=== PATIENT | male | born 1995 | race African-American/Black ===

== ENCOUNTER 2018-04-22 11:04 | Emergency (ER) | payer OTHER ==
[~2018-04-22] VITALS: Ht 190.5 cm; Wt 72.1 kg
[2018-04-22] MEDS ORDERED: KETOROLAC TROMETHAMINE 30 MG/ML VIAL IV STA (11:53)
--- NOTE | 2018-04-22 12:04 | Diagnostic Imaging Report ---
Exam: Chest X-ray, 2 views History: Chest pain. Cough Comparison: None Findings: Midline trachea. The heart size is normal. There is no consolidated pneumonia, pleural effusion or pneumothorax. The bones are unremarkable. Impression: No acute cardiopulmonary abnormality. Signed by: Dr. Wilfred Dixon M.D. on 04/22/2018 12:00 PM
[2018-04-22] MEDS ORDERED: KETOROLAC TROMETHAMINE 60 MG/2 ML VIAL IM ONE (12:30)
[2018-04-22] MEDS ORDERED: FAMOTIDINE 20 MG/2 ML VIAL IV STA (13:04)
[2018-04-22] MEDS ORDERED: ONDANSETRON HCL INJ 2 MG/ML VIAL IV STA (13:04)
[2018-04-22] MEDS ORDERED: MORPHINE SULFATE 2 MG/ML SYR IV STA (13:04)
[2018-04-22] MEDS ORDERED: PANTOPRAZOLE 40 MG 10ML VIAL IV STA (13:04)
[2018-04-22] MEDS ORDERED: SODIUM CHLORIDE 0.9% 1000ML 1,000 ML IV SCH (13:15)
[2018-04-22 14:11] VITALS: BP 6/3
== END 2018-04-22 14:00 | disposition home or self-care (01) ==
LOC: FSED 11:04
DX: R07.89 Other chest pain (principal); F17.210 Nicotine dependence, cigarettes, uncomplicated
CPT/HCPCS: 71046; 80053; 82553; 84484; 85025; 93005; 99284; J1885; J2270; J2405

== ENCOUNTER 2019-12-15 02:49 | Emergency (ER) | payer OTHER ==
[~2019-12-15] VITALS: Ht 193 cm; Wt 69.4 kg
--- OUTSIDE RECORDS SUMMARY | 2019-12-15 02:52 | XMS REPORT | Clinical Summary ---
Author Author RUTHANN [facility] Address Unknown Phone Unavailable Care Team Providers Care Metal Spray Operator Name Role Phone Farzad Styles MD PCP [phone] Allergies Comments Active Allergy Reactions Severity Noted Date Iodine And Iodide Swelling Medium 07/19/2019 Containing Products Medications End Date Status Medication Sig Dispensed Refills Start Date 07/29/2019 metroNIDAZOLE (FLAGYL) Take 1 tablet 30 tablet 0 0 500 MG tablet (500 mg 0 total) by mouth 3 (three) times daily for 10 days. Active Problems Not on file Encounters Care Team Description Date Type Specialty Ismael Brown MD Dehydration (Primary Dx); Diarrhea, unspecified type; Generalized abdominal pain; Elevated lipase; Enterocolitis 07/19/2019 Emergency Emergency Medicine 07/19/2019 Travel after 12/14/2018 Social History Date Tobacco Use Types Packs/Day Years Used Current Every Day Smoker 0.5 Smokeless Tobacco: Never Used Alcohol Use Drinks/Week oz/Week Comments No Alcohol Habits Answer Date Recorded How often do you have a drink containing alcohol? Never 07/19/2019 How many drinks containing alcohol do you have on No t asked a typical day when you are drinking? How often do you have six or more drinks on one Not asked occasion? Sex Assigned at Date Recorded Not on file Industry Job Start Date Occupation Not on file Not on file Not on file Travel End Travel History Travel Start No recent travel history available. Last Filed Vital Signs Time Taken Vital Sign Reading 07/19/2019 7:30 PM [employer] Blood Pressure 130/77 07/19/2019 7:30 PM [employer] Pulse 59 07/19/2019 5:58 PM [employer] Temperature 36.9 C (98.4 F) 07/19/2019 7:30 PM [employer] Respiratory Rate 18 07/19/2019 7:30 PM [employer] Oxygen Saturation 100% - Inhaled Oxygen - Concentration 07/19/2019 1:16 PM [employer] Weight 71.2 kg (157 lb) 07/19/2019 1:16 PM [employer] Height 190.9 cm (6' 3.16") 07/19/2019 1:16 PM [employer] Body Mass Index 19.54 Plan of Treatment Not on file Procedures Comments Procedure Name Priority Date/Time Associated Diag nosis CT ABDOMEN/PELVIS WITHOUT STAT 07/19/2019 IV CONTRAST 5:43 PM [employer] CBC W/PLT COUNT & AUTO STAT 07/19/2019 DIFFERENTIAL 4:15 PM [employer] HEPATIC FUNCTION PANEL STAT 07/19/2019 4:15 PM [employer] BASIC METABOLIC PANEL (7) STAT 07/19/2019 4:15 PM [employer] PT/APTT STAT 07/19/2019 4:15 PM [employer] LIPASE STAT 07/19/2019 4:15 PM [employer] CBC W/PLT COUNT & AUTO STAT 07/19/2019 DIFFERENTIAL 4:15 PM [employer] after 12/14/2018 Results * CT abdomen/pelvis without iv contrast (07/19/2019 5:43 PM [employer]PER[employer]) Specimen Narrative Performed At FINAL REPORT [facility] CT scan of the abdomen and pelvis. MEDICAL HISTORY: Abdominal pain, elevat ed lipase, allergy to iodine. COMPARISON STUDY: CT scan of the chest dated April 25, 2018. TECHNIQUE: Contiguous helical slices we re acquired through the abdomen and pelvis without the administ ration of contrast. This exam was performed according to our departme nt dose optimization program which includes automated exposure contr ol, adjustment of the mA and/or kV according to the patient's si ze and/or use of iterative reconstruction technique. FINDINGS: The lung bases are clear. The abdomen and pelvis are limited by l ack of contrast. The liver, spleen, kidneys and adrenal glands are unremarkable. The gallbladder is contracted. No biliary d ilatation is seen. The pancreas is bulky in appearance. There are no dilated loops of bowel see n suggest obstruction. However, multiple bowel loops are fluid -filled which can be seen with an enterocolitis. The appendix is not w ell seen. There is no free fluid or free air. No suspicious adenopathy is seen. The aorta is normal in caliber. Mild di ffuse anasarca is seen as well as some cachexia. Bone windows demonstrate no focal abnor mality. IMPRESSION: 1. Diffuse cachexia and some anasarca. 2. Multiple fluid-filled loops of nondi stended bowel which can be seen with an enterocolitis. 3. Appendix not well seen. 4. Study limited by lack of contrast. 5. Somewhat bulky appearing pancreas bu t no focal abnormality on this noncontrast study. Signed: Demetrio Dc MD Report Verified Date/Time: 0 18:14:16 Reading Location: [facility] C013Y CT Body Reading Room Procedure Note Interface, External Ris In - 07/19/2019 6:16 PM [employer] FINAL REPORT CT scan of the abdomen and pelvis. MEDICAL HISTORY: Abdominal pain, elevated lipase, allergy to iodine. COMPARISON STUDY: CT scan of the chest dated April 25, 2018. TECHNIQUE: Contiguous helical slices were acquired through the abdomen and pelvis without the administration of contrast. This exam was performed according to our department dose optimization program which includes automated exposure control, adjustment of the mA and/or kV according to the patient's size and/or use of iterative reconstruction technique. FINDINGS: The lung bases are clear. The abdomen and pelvis are limited by lack of contrast. The liver, spleen, kidneys and adrenal glands are unremarkable. The gallbladder is contracted. No biliary dilatation is seen. The pancreas is bulky in appearance. There are no dilated loops of bowel seen suggest obstruction. However, multiple bowel loops are fluid-filled which can be seen with an enterocolitis. The appendix is not well seen. There is no free fluid or free air. No suspicious adenopathy is seen. The aorta is normal in caliber. Mild diffuse anasarca is seen as well as some cachexia. Bone windows demonstrate no focal abnormality. IMPRESSION: 1. Diffuse cachexia and some anasarca. 2. Multiple fluid-filled loops of nondis tended bowel which can be seen with an enterocolitis. 3. Appendix not well seen. 4. Study limited by lack of contrast. 5. Somewhat bulky appearing pancreas but no focal abnormality on this noncontrast study. Signed: Demetrio Dc MD Report Verified Date/Time: 07/19/2019 18:14:16 Reading Location: [facility] B1 C013Y CT Body Reading Room Performing Organization Address [facility] Ph one Number GE RIS * PT/aPTT (07/19/2019 4:15 PM [employer]) Protime 12.8 11.9 - 14.2 seconds [facility] INR 1.0 <=5.9 [facility] PTT 29.9 22.5 - 36.0 seconds [facility] Specimen Blood Narrative Performed At Effective 12/08/2018: PT Reference Range Change [facility] New: 11.9-14.2Previous: 11.7-14.7 [facility] MEDICAL CE NTER RECOMMENDED COUMADIN/WARFARIN INR THERA PY RANGES STANDARD DOSE: 2.0-3.0Includes: PRO PHYLAXIS for venous thrombosis, systemic embolization; TREATMENT for venous thro mbosis and/or pulmonary embolus. HIGH RISK: Target INR is 2.5-3.5 for pa tients wiht mechanical heart valves. Performing Organization Address [facility] Ph one Number [address] [facility] * CBC with platelet count + automated diff (07/19/2019 4:15 PM [employer]PER[employer]OR) WBC 6.0 3.5 - 10.5 K/L [facility] RBC 5.31 4.63 - 6.08 M/L [facility] Hemoglobin 15.7 13.7 - 17.5 GM/DL [facility] Hematocrit 47.6 40.1 - 51.0 % [facility] MCV 89.6 79.0 - 92.2 fL [facility] MCH 29.6 25.7 - 32.2 pg [facility] MCHC 33.0 32.3 - 36.5 GM/DL [facility] RDW 14.1 11.6 - 14.4 % [facility] Platelets 303 150 - 450 K/CU MM [facility] MPV 8.9 (L) 9.4 - 12.4 fL [facility] nRBC 0 0 - 0 /100 WBC [facility] % Neutros 56 % [facility] % Lymphs 29 % [facility] % Monos 9 % [facility] % Eos 5 % [facility] % Baso 1 % [facility] # Neutros 3.38 1.78 - 5.38 K/L [facility] # Lymphs 1.75 1.32 - 3.57 K/L [facility] # Monos 0.54 0.30 - 0.82 K/L [facility] # Eos 0.27 0.04 - 0.54 K/L [facility] # Baso 0.05 0.01 - 0.08 K/L [facility] Immature 0 0 - 1 % [facility] Granulocytes-Relative [facility] Specimen Blood Performing Organization Address City/State/Zipcode Ph one Number [address] [facility] [facility] * Lipase (07/19/2019 4:15 PM [employer]) Lipase 175 (H) 8 - 78 U/L [facility] Specimen Blood Performing Organization Address City/[facility] Ph one Number [place] [phone] [facility] * Hepatic function panel (07/19/2019 4:15 PM [employer]) Protein, Total 7.9Comment: Specimen slightly 6.0 - 8.3 gm/dL [facility] Albumin 4.6Comment: Specimen slightly 3.5 - 5.0 g/dL [facility] Total Bilirubin 0.2Comment: Specimen slightly 0.2 - 1.2 mg/dL [facility] Bilirubin, Direct 0.1Comment: Specimen slightly 0.1 - 0.5 mg/ dL [facility] Alkaline Phosphatase 70 40 - 150 U/L [facility] AST 16Comment: Specimen slightly 5 - 34 U/L [facility] ALT 12Comment: Specimen slightly 6 - 55 U/L C [facility] Specimen Blood Performing Organization Address City/[facility] Ph one Number [place] [phone] [facility] * Basic Metabolic Panel (07/19/2019 4:15 PM [employer]) Sodium 138 136 - 145 meq/L [facility] Potassium 4.4Comment: Specimen slightly 3.5 - 5.1 meq/L [facility] Chloride 103 98 - 107 meq/L [facility] CO2 25 22 - 29 meq/L [facility] BUN 7 7 - 21 mg/dL [facility] Creatinine 1.01Comment: Specimen slightly 0.57 - 1.25 mg/ dL [facility] Glucose 94 70 - 105 mg/dL [facility] Calcium 9.6 8.4 - 10.2 mg/dL [facility] EGFR 112Comment: ESTIMATED GFR IS mL/min/1.[address] [facility] NOT ACCURATE CREATININE [facility] CLEARANCE IN PREDICTING GLOMERULAR FILTRATION RATE. ESTIMATED GFR IS NOT APPLICABLE FOR DIALYSIS PATIENTS. Specimen Blood Performing Organization Address City/State/Zipcode Ph one Number [address] [facility] after 12/14/2018 Insurance Payer Benefit Subscriber ID Type Phone Address Plan / Group [employer] - [employer] CARE [employer] xxxxxxxxx HMO/POS [facility] Guarantor Name Account Relation to Date of Phone Victor Manuel friend Address Type Patient Reid Tolliver Joey Personal/F Self 1995 [id number] amily (Home) [place] [address]
--- OUTSIDE RECORDS SUMMARY | 2019-12-15 02:52 | XMS REPORT | Continuity of Care Document ---
Author Author [facility] t Organization [facility] Address [address] [place] [address] Phone Unavailable Care Team Providers Care Sweat Band Separator Name Role Phone NONSTAFF PCP Unavailable TAM FARIAS Attphys Unavailable Fanny SON Attphys Unavailable Erich BLANCA Attphykota Unavailable Payers Payer Name Policy Type Policy Number Effective Date Expiration Date Kota mohan Cig [facility] [id number] 2019 00:00: 00 [facility] [id number] 2018 00:00:00 [facility] Problems This patient has no known problems. Allergies, Adverse Reactions, Alerts Allergy Name Allergy Type Status Severity Reaction(s) Onset Date Inacti ve Date Treating Clinician Comments Source Iodine Allergy to Substance Active Moderate RASH 2019-07-14 00:00:00 [facility] Medications This patient has no known medications. Procedures This patient has no known procedures. Encounters Start Date/Time End Date/Time Encounter Type Admission Type [facility] Care Department Encounter ID Source 2019-07-14 21:48:00 2019-07-15 01:32:00 Departed Emergency Room 1 DEANNA SON [facility] [id number] [facility] 2018-04-22 11:04:00 2018-04-22 14:00:00 Departed Emergency Room 1 CHRIS BLANCA [facility] [id number] [facility] Results Test Description Test Time Test Comments Results Result Comments Source CT, ABDOMEN 2019-07-19 18:14:00 Reason for exam:->ab dominal painWhat is the patient's sedation requirement?->No Sedation FINAL REPORT CT scan of the abdomen [...] cachexia. Bone windows demonstrate no focal abnormality. IMPRESSION:1. Diffuse cachexia and some anasarca.2. Multiple fluid-filled loops of nondistended bowel which can be seen with an enterocolitis.3. Appendix not well seen.4. Study limited by lack of contrast.5. Somewhat bulky appearing pancreas but no focal abnormality on this noncontrast study. Signed: Demetrio Dceport Verified Date/Time: 07/19/2019 18:14:16 Reading Location: [address] Body Reading Room SE 2019-07-19 16:47:00 Test Item LIPASE (BEAKER) (test code = 749) 175 U/L 8-78 H BASIC METABOLIC [id number] 16:47:00* Test Item Value Reference Range Interpretation Comments SODIUM (BEAKER) (test code = 381) 138 meq/L 136-145 POTASSIUM (BEAKER) (test code = 379) 4.4 meq/L 3.5-5.1 Specimen slightly hemolyzed CHLORIDE (BEAKER) (test code = 382) 103 meq/L 98-107 CO2 (BEAKER) (test code = 355) 25 meq/L 22-29 BLOOD UREA NITROGEN (BEAKER) (test code = 354) 7 mg/dL 7-21 CREATININE (BEAKER) (test code = 358) 1.01 mg/dL 0.57-1.25 Specimen slightly hemolyzed GLUCOSE RANDOM (BEAKER) (test code = 652) 94 mg/dL 70-105 CALCIUM (BEAKER) (test code = 697) 9.6 mg/dL 8.4-10.2 EGFR (BEAKER) (test code = 1092) 112 mL/min/1.73 sq m ESTIMATED GFR IS NOT ACCURATE CREATININE CLEARANCE IN PREDICTING GLOMERULAR FILTRATION RATE. ESTIMATED GFR IS NOT APPLICABLE FOR DIALYSIS PATIENTS. HEPATIC FUNCTION [id number] 16:47:00* Test Item Value Reference Range Interpretation Comments TOTAL PROTEIN (BEAKER) (test code = 770) 7.9 gm/dL 6.0-8.3 Specimen slightly hemolyzed ALBUMIN (BEAKER) (test code = 1145) 4.6 g/dL 3.5-5.0 Specimen slightly hemolyzed BILIRUBIN TOTAL (BEAKER) (test code = 377) 0.2 mg/dL 0.2-1.2 Specimen slightly hemolyzed BILIRUBIN DIRECT (BEAKER) (test code = 706) 0.1 mg/dL 0.1-0.5 Specimen slightly hemolyzed ALKALINE PHOSPHATASE (BEAKER) (test code = 346) 70 U/L 40-150 AST (SGOT) (BEAKER) (test code = 353) 16 U/L 5-34 Specimen slightly hemolyzed ALT (SGPT) (BEAKER) (test code = 347) 12 U/L 6-55 Specimen slightly hemolyzed PT/[id number] 16:40:00* Test Item Value Reference Range Interpretation Comments PROTIME (BEAKER) (test code = 759) 12.8 seconds 11.9-14.2 INR (BEAKER) (test code = 370) 1.0 <=5.9 PARTIAL THROMBOPLASTIN TIME (BEAKER) (test code = 760) 29.9 seconds 22.5-36.0 Effective 12/08/2018: PT Reference Range ChangeNew: 11.9-14.2 Previous: 11.7-14. 7RECOMMENDED COUMADIN/WARFARIN INR THERAPY RANGESSTANDARD DOSE: 2.0-3.0 Include s: PROPHYLAXIS for venous thrombosis, systemic embolization; TREATMENT for venou s thrombosis and/or pulmonary embolus.HIGH RISK: Target INR is 2.5-3.5 for patie nts wiht mechanical heart valves.CBC W/PLT COUNT & AUTO [id number] 16:24:00* Test Item Value Reference Range Interpretation Comments WHITE BLOOD CELL COUNT (BEAKER) (test code = 775) 6.0 K/ L 3.5- 10.5 RED BLOOD CELL COUNT (BEAKER) (test code = 761) 5.31 M/ L 4.63-6 .08 HEMOGLOBIN (BEAKER) (test code = 410) 15.7 GM/DL 13.7-17.5 HEMATOCRIT (BEAKER) (test code = 411) 47.6 % 40.1-51.0 MEAN CORPUSCULAR VOLUME (BEAKER) (test code = 753) 89.6 fL 79. 0-92.2 MEAN CORPUSCULAR HEMOGLOBIN (BEAKER) (test code = 751) 29.6 pg 25.7-32.2 MEAN CORPUSCULAR HEMOGLOBIN CONC (BEAKER) (test code = 752) 33.0 GM/DL 32.3-36.5 RED CELL DISTRIBUTION WIDTH (BEAKER) (test code = 412) 14.1 % 11.6-14.4 PLATELET COUNT (BEAKER) (test code = 756) 303 K/CU MM 150-450 MEAN PLATELET VOLUME (BEAKER) (test code = 754) 8.9 fL 9.4-12 .4 L NUCLEATED RED BLOOD CELLS (BEAKER) (test code = 413) 0 /100 WBC 0 -0 NEUTROPHILS RELATIVE PERCENT (BEAKER) (test code = 429) 56 % LYMPHOCYTES RELATIVE PERCENT (BEAKER) (test code = 430) 29 % MONOCYTES RELATIVE PERCENT (BEAKER) (test code = 431) 9 % EOSINOPHILS RELATIVE PERCENT (BEAKER) (test code = 432) 5 % BASOPHILS RELATIVE PERCENT (BEAKER) (test code = 437) 1 % NEUTROPHILS ABSOLUTE COUNT (BEAKER) (test code = 670) 3.38 K/ L 1.78-5.38 LYMPHOCYTES ABSOLUTE COUNT (BEAKER) (test code = 414) 1.75 K/ L 1.32-3.57 MONOCYTES ABSOLUTE COUNT (BEAKER) (test code = 415) 0.54 K/ L 0. 30-0.82 EOSINOPHILS ABSOLUTE COUNT (BEAKER) (test code = 416) 0.27 K/ L 0.04-0.54 BASOPHILS ABSOLUTE COUNT (BEAKER) (test code = 417) 0.05 K/ L 0. 01-0.08 IMMATURE GRANULOCYTES-RELATIVE PERCENT (BEAKER) (test code = 2801) 0 % 0-1 US GALL [id number] 01:03:00 [place] [address] Patient Name: JIMENEZ GAMINO MR #: [id number] : 1995 Age/Sex: 23/M Req #: [id number] Adm Physician: Ordered by: DEANNA SON MD Report #: [id number] [facility] Room/Bed: Procedure: [id number] HOPD/US GALL BLADDER-HOPD Exam Date: 07/14/19 E xam Time: 2350 REPORT STATUS: Idalia d EXAM: Right Upper Quadrant Ultrasound with Doppler INDICATION: Right up per quadrant pain COMPARISON: None. TECHNIQUE: Transverse and longitud inal images of the right upper abdomen were obtained. Grayscale, color Dopple r and spectral waveform analysis of the hepatic vasculature and splenic vein w ere performed. FINDINGS: Liver: Size: 17.3 cm in the right mi dclavicular line, normal Appearance: Normal echogenicity, smooth contour Mass: No focal masses Gallbladder: Stones/Sludge: None Wall: Not thickened Appearance: No pericholecystic fluid or hydrops. Sonographic Salas's Sign: Negative Bile Ducts: Intrahepatic D ucts: No dilatation Extrahepatic Ducts: Common bile duct measures 0.28 cm , no dilatation Pancreas: Visualized portions of the pancreatic head , neck and proximal body are normal. Right Kidney: Size: 9.9 cm Echogenicity: Normal Parenchymal thickness: Normal [facility]: No hydronephrosis Stones: None Cyst/Mass: None V essels: Main Portal Vein: Normal diameter, 1 cm. Normal flow direction. Aorta: No stenosis or aneurysm visualized. Inferior Vena Cava: Visu alized portions are normal Free Fluid: No ascites or pleural effu mary IMPRESSION: Normal right upper quadrant ultrasound with normal Do ppler exam. Signed by: Calin Chris DO on 07/15/2019 1:05 AM Dictat ed By: CALIN CHRIS DO 4 COPY TO: ZAFAR MD CT, CHEST WITH IV CONTRAST- PE TEST [id number] 18:43:00 Reason for exam:->chest painWhat is the patient's sedation requirement?->No SedationFINAL REPORT CT scan of the chest with pulmonary embolism protocol. Clinical History: chest painchest pain. Comparison Study: None. Technique: Pre-intravenous contrast localization images were acquired followed by contiguous helical slices through the thorax post administration of intravenous contrast using a timed bolus fashion. This exam was performed according to our department dose optimization program which includes automated exposure control, adjustment of the mA and/or kV according to the patient's size and/or use of iterative reconstruction technique. Findings: There is no evidence of pulmonary embolism. The mediastinum is unremarkable with no suspicious masses or adenopathy. The pleural spaces are clear. The visualized portions of the upper abdomen are unremarkable. The tracheobronchial tree is clear with no endobronchial lesions. The pulmonary parenchyma is unremarkable. Bone windows demonstrate no evidence of fracture or malalignment. Impression: 1. No evidence of pulmonary embolism. Signed: Demetrio Dc MDReport Verified Date/Time: 04/25/2018 18:43:15 Reading Location: [facility] C013X [facility] Consult Reading Room ONIN [id number] 16:51:00* Test Item Value Reference Range Interpretation Comments TROPONIN I (BEAKER) (test code = 397) 0.03 ng/mL 0.00-0.03 Troponin I (TnI) levels must be interpreted in the context of the presenting sym ptoms and the clinical findings. Elevated TnI levels indicate myocardial damage, but are not specific for ischemic heart disease. Elevated TnI levels are seen in patients with other cardiac conditions (including myocarditis and congestive h eart failure), and slight TnI elevations occur in patients with other conditions , including sepsis, renal failure, acidosis, acute neurological disease, and per sistent tachyarrhythmia.BASIC METABOLIC [id number] 16:43:00* Test Item Value Reference Range Interpretation Comments SODIUM (BEAKER) (test code = 381) 139 meq/L 136-145 POTASSIUM (BEAKER) (test code = 379) 3.6 meq/L 3.5-5.1 CHLORIDE (BEAKER) (test code = 382) 103 meq/L 98-107 CO2 (BEAKER) (test code = 355) 26 meq/L 22-29 BLOOD UREA NITROGEN (BEAKER) (test code = 354) 19 mg/dL 7-21 CREATININE (BEAKER) (test code = 358) 1.25 mg/dL 0.57-1.25 GLUCOSE RANDOM (BEAKER) (test code = 652) 98 mg/dL 70-105 CALCIUM (BEAKER) (test code = 697) 9.1 mg/dL 8.4-10.2 EGFR (BEAKER) (test code = 1092) 88 mL/min/1.73 sq m INSUFFICIENT CLINICAL DATA TO CALCULATE ESTIMATED GFR. CBC W/PLT COUNT & AUTO [id number] 16:21:00* Test Item Value Reference Range Interpretation Comments WHITE BLOOD CELL COUNT (BEAKER) (test code = 775) 6.5 K/ L 3.5- 10.5 RED BLOOD CELL COUNT (BEAKER) (test code = 761) 5.00 M/ L 4.63-6 .08 HEMOGLOBIN (BEAKER) (test code = 410) 14.6 GM/DL 13.7-17.5 HEMATOCRIT (BEAKER) (test code = 411) 43.6 % 40.1-51.0 MEAN CORPUSCULAR VOLUME (BEAKER) (test code = 753) 87.2 fL 79. 0-92.2 MEAN CORPUSCULAR HEMOGLOBIN (BEAKER) (test code = 751) 29.2 pg 25.7-32.2 MEAN CORPUSCULAR HEMOGLOBIN CONC (BEAKER) (test code = 752) 33.5 GM/DL 32.3-36.5 RED CELL DISTRIBUTION WIDTH (BEAKER) (test code = 412) 13.2 % 11.6-14.4 PLATELET COUNT (BEAKER) (test code = 756) 252 K/CU MM 150-450 MEAN PLATELET VOLUME (BEAKER) (test code = 754) 10.0 fL 9.4-12 .4 NUCLEATED RED BLOOD CELLS (BEAKER) (test code = 413) 0 /100 WBC 0 -0 NEUTROPHILS RELATIVE PERCENT (BEAKER) (test code = 429) 67 % LYMPHOCYTES RELATIVE PERCENT (BEAKER) (test code = 430) 23 % MONOCYTES RELATIVE PERCENT (BEAKER) (test code = 431) 10 % EOSINOPHILS RELATIVE PERCENT (BEAKER) (test code = 432) 0 % BASOPHILS RELATIVE PERCENT (BEAKER) (test code = 437) 1 % NEUTROPHILS ABSOLUTE COUNT (BEAKER) (test code = 670) 4.34 K/ L 1.78-5.38 LYMPHOCYTES ABSOLUTE COUNT (BEAKER) (test code = 414) 1.46 K/ L 1.32-3.57 MONOCYTES ABSOLUTE COUNT (BEAKER) (test code = 415) 0.63 K/ L 0. 30-0.82 EOSINOPHILS ABSOLUTE COUNT (BEAKER) (test code = 416) 0.01 K/ L 0.04-0.54 L BASOPHILS ABSOLUTE COUNT (BEAKER) (test code = 417) 0.03 K/ L 0. 01-0.08 IMMATURE GRANULOCYTES-RELATIVE PERCENT (BEAKER) (test code = 2801) 0 % 0-1 CXR 2 VIEW - [id number] 12:00:00 [place] [address] Patient Name: JIMENEZ GAMINO MR #: [id number] : 1995 Age/Sex: 22/M Req #: [id number] Adm Physician: Ordered by: CHRIS BLANCA MD Report #: [id number] [facility] Room/Bed: Procedure: [id number] HOPD/CXR 2 VIEW - HOPD Exam Date: Exam Time: REPORT STATUS: Signed Exam: Chest X-ray, 2 views History: Chest pain. Cough Comparis on: None Findings: Midline trachea. The heart size is normal. Th ere is no consolidated pneumonia, pleural effusion or pneumothorax. The bon es are unremarkable. Impression: No acute cardiopulmonary abnormality. Signed by: Dr. Wilfred Dixon M.D. on 04/22/2018 12:00 PM Dictated By: WILFRED DIXON MD, MD 1 200 Transcribed By: SEPIDEH on 04/22/18 1200 COPY TO: CHRIS BLANCA
[2019-12-15 03:07] VITALS: BP 148/61
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
== END 2019-12-15 03:20 | disposition home or self-care (01) ==
LOC: ER 02:49
DX: F41.9 Anxiety disorder, unspecified (principal); F17.210 Nicotine dependence, cigarettes, uncomplicated
CPT/HCPCS: 99282

== ENCOUNTER 2020-02-13 20:44 | Emergency (ER) | payer OTHER ==
[~2020-02-13] VITALS: Ht 193 cm; Wt 69.4 kg
[2020-02-13] MEDS ORDERED: LIDOCAINE HCL 1% LOCAL INJ 20 ML VIAL INJ ONE (22:00)
[2020-02-13] MEDS ORDERED: TETANUS/DIPHTHERIA TOX ADULT 0.5 ML SYR IM ONE (22:00)
[2020-02-13] MEDS ORDERED: LIDOCAINE HCL 1% LOCAL INJ 20 ML VIAL ONE (22:01)
[2020-02-13] MEDS ORDERED: TETANUS/DIPHTHERIA TOX ADULT 0.5 ML SYR ONE (22:02)
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
--- OUTSIDE RECORDS SUMMARY | 2020-02-13 22:37 | XMS REPORT | Continuity of Care Document ---
Author Author [facility] t Organization [facility] Address [address] [place] [address] Phone Unavailable Care Team Providers Care Oven Drier Tender Name Role Phone NONSTAFF PCP Unavailable Rm Farias MD Attphys RM FARIAS Attphys Unavailable Fanny SON Attphys Unavailable Erich BLANCA Attphys Unavailable Payers Payer Name Policy Type Policy Number Effective Date Expiration Date Valeria mohan Cigna [facility] [id number] 2015 00:00: 00 [facility] CIGNA - MGD CARECIGNA [facility]/POS xx xxxxxxx [facility] Cigna [facility] [id number] 2018 00:00:00 [facility] Problems This patient has no known problems. Allergies, Adverse Reactions, Alerts Allergy Name Allergy Type Status Severity Reaction(s) Onset Date Inacti ve Date Treating Clinician Comments Source Iodine And Iodide Containing Products Propensity to adverse reactio ns Active Swelling 2019-07-19 00:00:00 [facility] Iodine Allergy to substance Active Moderate RASH 2019-07-14 00:00:00 [facility] Social History Social Habit Start Date Stop Date Quantity Comments Source History SDOH Alcohol Std Drinks [facility] History SDOH Alcohol Binge [facility] Sex Assigned At [facility] Cigarettes smoked current (pack per day) - Reported 00:00:00 2019-07-19 00:00:00 [facility] History SDOH Alcohol Frequency 2019-07-19 00:00:00 2019-07-19 00:00:0 0 1 [facility] Smoking Status Start Date Stop Date Source Current every day smoker 2019-07-19 00:00:00 [facility] Medications Ordered Medication Name Filled Medication Name Start Date Stop Da te Current Medication? Ordering Clinician Indication Dosage Frequency Signature (SIG) Comments Components Source metroNIDAZOLE (FLAGYL) 500 MG tablet 2019-07-19 00:00: 00 2019-07-29 23:59:00 No 500mg [id number] Take 1 tablet (500 mg total) by mouth 3 (three) times daily for 10 days. [facility] Vital Signs Vital Name Observation Time Observation Value Comments Source Body Temperature 2019-12-15 03:07:00 97.6 [degF] [facility] Weight 2019-12-15 02:56:00 153 [lb_av] [facility] BMI (Body Mass Index) 2019-12-15 02:56:00 18.6 kg/m2 [facility] Systolic blood pressure 2019-07-19 19:30:00 130 mm[Hg] [facility] Diastolic blood pressure 2019-07-19 19:30:00 77 mm[Hg] [facility] Heart rate 2019-07-19 19:30:00 59 /min [facility] Respiratory rate 2019-07-19 19:30:00 18 /min [facility] Oxygen saturation in Arterial blood by Pulse oximetry 07-19 19:30:00 100 /[facility] temperature 2019-07-19 17:58:00 36.89 Chapis [facility] Body height 2019-07-19 13:16:00 190.9 cm [facility] Body weight Measured 2019-07-19 13:16:00 71.215 kg [facility] BMI 2019-07-19 13:16:00 19.54 kg/m2 [facility] Procedures Procedure Date / Time Performed Performing Clinician Sourc e CT ABDOMEN/PELVIS WITHOUT IV CONTRAST 2019-07-19 17:43:00 Ismael Farias [facility] LIPASE 2019-07-19 16:15:00 Maged Jeffersonen [facility] PT/APTT 2019-07-19 16:15:00 Shantel Jefferson [facility] BASIC METABOLIC PANEL (7) 2019-07-19 16:15:[address] [facility] HEPATIC FUNCTION PANEL 2019-07-19 16:15:00 Shantel Jefferson [facility] CBC W/PLT COUNT & AUTO DIFFERENTIAL 2019-07-19 16:15:00 Shantel Jefferson [facility] Plan of Care Planned Activity Planned Date Details Comments Source Instructions Generalized Anxiety Disorder [facility] Encounters Start Date/Time End Date/Time Encounter Type Admission Type Attendi [facility] Care Department Encounter ID Source 2019-12-15 02:49:00 2019-12-15 02:49:00 Registered Emergency Room [facility] [id number] [facility] dical [place] 2019-07-14 20:48:00 2019-07-15 00:32:00 Departed Emergency Room 1 DEANNA SON [facility] [id number] [facility] 2018-04-22 11:04:00 2018-04-22 14:00:00 Departed Emergency Room [address] [facility] [id number] [facility] Results Test Description Test Time Test Comments [...] on this noncontrast study. Signed: Demetrio Dc MDReport Verified Date/Time: 07/19/2019 18:14:16 Reading Location: [facility] C013Y CT Body Reading Room abdomen/pelvis without iv contrast 2019-07-19 18:14:00 Interface, External Ris In - 07/19/2019 6:[address] scan of the abdomen and pelvis. MEDICAL HISTORY: Abdominal pain, elevated lipase, allergy to iodine. COMPARISON STUDY: CT scan of the chest dated April 25, 2018. TECHNIQUE: Contiguous helical slices were acquired through the abdomen and pelvis without the administration of contrast. This exam was performed acc ording to our department dose optimization program which [...] be seen with an enterocolitis.3. Appendix not we ll seen.4. Study limited by lack of contrast.5. Somewhat bulky appearing pancreas but no focal abnormality on this noncontrast study. Signed: Demetrio Dc MDReport Verified Date/Time: 07/19/2019 18:14:16 Reading Location: [facility] C013Y CT Body Reading Room [facility] r Basic Metabolic Panel 2019-07-19 16:47:00 Test Item Sodium (test code = 2951-2) 138 meq/L 136-145 Potassium (test code = 2823-3) 4.4 meq/L 3.5-5.1 Specimen slightly hemolyzed Chloride (test code = 2075-0) 103 meq/L 98-107 CO2 (test code = 8-9) 25 meq/L 22-29 BUN (test code = 3094-0) 7 mg/dL 7-21 Creatinine (test code = 2160-0) 1.01 mg/dL 0.57-1.25 Specimen slightly hemolyzed Glucose (test code = 2345-7) 94 mg/dL 70-105 Calcium (test code = 17909-7) 9.6 mg/dL 8.4-10.2 EGFR (test code = 72596-1) 112 mL/min/1.73 sq m ESTIMATED GFR IS NOT ACCURATE CREATININE CLEARANCE IN PREDICTING GLOMERULAR FILTRATION RATE. ESTIMATED GFR IS NOT APPLICABLE FOR DIALYSIS PATIENTS. [facility] [id number] 16:47:00* Test Item Value Reference Range Interpretation Comments Protein, Total (test code = 2885-2) 7.9 6.0- 8.3 gm/dL Specimen slightly hemolyzed Albumin (test code = 57282-4) 4.6 g/dL 3.5-5 Specimen slightly hemolyzed Total Bilirubin (test code = 1975-2) 0.2 mg/dL 0.2-1.2 Specimen slightly hemolyzed Bilirubin, Direct (test code = 1967-7) 0.1 mg/dL 0.1-0.5 Specimen slightly hemolyzed Alkaline Phosphatase (test code = 6768-6) 70 U/L 40-150 AST (test code = 1920-8) 16 U/L 5-34 Spe cimen slightly hemolyzed ALT (test code = 1742-6) 12 U/L 6-55 Spe cimen slightly hemolyzed Lab Interpretation (test code = 68732-1) Normal [facility]2020-[facility] 16:47:00* Test Item Value Reference Range Interpretation Comments Lipase (test code = 3040-3) 175 U/L 8-78 H Lab Interpretation (test code = 63158-0) Abnormal [facility] 16:47:00* Test Item Value Reference Range Interpretation Comments LIPASE (BEAKER) (test code = 749) 175 U/L 8-78 H BASIC METABOLIC [id number] 16:47:00* Test Item Value Reference Range Interpretation [...] NOT APPLICABLE FOR DIALYSIS PATIENTS. HEPATIC FUNCTION [id number] 16:47:00* Test Item Value Reference Range Interpretation [...] 347) 12 U/L 6-55 Specimen slightly hemolyzed PT/[id number] 16:40:00* Test Item Value Reference Range Interpretation Comments Protime (test code = 5902-2) 12.8 11.9- 14.2 seconds INR (test code = 6301-6) 1.0 <=5.9 PTT (test code = 54978-0) 29.9 22.5- 36.0 seconds GAETANO (test code = GAETANO) Effective 12/08/2018: PT Refe rence Range ChangeNew: 11.9- 14.2 Previous: 11.7-14.7 RECOMMENDED COUMADIN/WARFARIN INR THERAPY RANGESSTANDARD DOSE: 2.0-3.0 Includes: PROPHYLAXIS for venous thrombosis, sys temic embolization; TREATMENT for venous thrombosis and/or pulmonary embolus.HIGH RISK: Target INR is 2.5-3.5 for patients wiht mechanical heart valves. Lab Interpretation (test code = 09116-4) Normal [facility]/[id number] 16:40:00* Test Item Value Reference Range Interpretation [...] for patie nts wiht mechanical heart valves.CBC with platelet count + automated diff 2019-07-19 16:24:00* Test Item Value Reference Range Interpretation Comments WBC (test code = 6690-2) 6.0 3.5- 10.5 K/L RBC (test code = 789-8) 5.31 4.63- 6.08 M/L MCHC (test code = 786-4) 33.0 32.3- 36.5 GM/DL Hematocrit (test code = 4544-3) 47.6 % 40.1-51 MCV (test code = 787-2) 89.6 fL 79-92.2 MCH (test code = 785-6) 29.6 pg 25.7-32.2 RDW (test code = 788-0) 14.1 % 11.6-14.4 Platelets (test code = 777-3) 303 150- 450 K/CU MM MPV (test code = 37992-5) 8.9 fL 9.4-12.4 L nRBC (test code = 413) 0 0- 0 /100 WBC % Neutros (test code = 429) 56 % % Lymphs (test code = 430) 29 % % Monos (test code = 431) 9 % % Eos (test code = 432) 5 % % Baso (test code = 437) 1 % # Neutros (test code = 670) 3.38 1.78- 5.38 K/L # Lymphs (test code = 414) 1.75 1.32- 3.57 K/L # Monos (test code = 415) 0.54 0.30- 0.82 K/L # Eos (test code = 416) 0.27 0.04- 0.54 K/L # Baso (test code = 417) 0.05 0.01- 0.08 K/L Immature Granulocytes-Relative (test code = 2801) 0 % 0-1 Lab Interpretation (test code = 18624-6) Abnormal [facility] W/PLT COUNT & AUTO [id number] 16:24:00* Test Item Value Reference Range Interpretation [...] = 2801) 0 % 0-1 US GALL [id number] 01:03:00 [place] [address] Patient Name: JIMENEZ GAMINO MR #: [id number] : 1995 Age/Sex: 23/M Req #: [id number] Adm Physician: Ordered by: DEANNA SON MD Report #: [id number] Location: [facility] Room/Bed: Procedure: [id number] HOPD/US GALL BLADDER-HOPD [...] 9.9 cm Echogenicity: Normal Parenchymal thickness: Normal [facility] ting system: No hydronephrosis Stones: None Cyst/Mass: None [...] CT, CHEST WITH IV CONTRAST- PE TEST [id number] 18:43:00 Reason for exam:->chest painWhat is the [...] MDReport Verified Date/Time: 04/25/2018 18:43:15 Reading Location: [facility] C013X [facility] Consult Reading Room ONIN [id number] 16:51:00* Test Item Value Reference Range Interpretation Comments TROPONIN I (BEAKER) (test code = 397) 0.03 ng/mL 0.00-0.03 Troponin I (TnI) levels must be interpreted in the context of the presenting sym ptoms and the clinical findings. Elevated TnI levels indicate myocardial damage, but are not specific for ischemic heart disease. Elevated TnI levels are seen i n patients with other cardiac conditions (including myocarditis and congestive h eart failure), and slight TnI elevations occur in patients with other conditions , including sepsis, renal failure, acidosis, acute neurological disease, and per sistent tachyarrhythmia.BASIC METABOLIC [id number] 16:43:00* Test Item Value Reference Range Interpretation [...] ESTIMATED GFR. CBC W/PLT COUNT & AUTO [id number] 16:21:00* Test Item Value Reference Range Interpretation [...] 0 % 0-1 CXR 2 VIEW - [id number] 12:00:00 [place] [address] Patient Name: JIMENEZ GAMINO MR #: [id number] : 1995 Age/Sex: 22/M Req #: [id number] Adm Physician: Ordered by: CHRIS BLANCA MD Report #: [id number] Location: [facility] Room/Bed: Procedure: [id number] HOPD/CXR 2 VIEW - HOPD Exam Date: Exam Time: REPORT STATUS: Signed Exam: Chest X-ray, 2 views History: Chest pain. Cough Comparis on: None Findings: Midline trachea. The heart size is normal. Th ere is no consolidated pneumonia, pleural effusion or pneumothorax. The bon es are unremarkable. Impression: No acute cardiopulmonary abnormality. Signed by: Dr. Romy Dixon M.D. on 04/22/2018 12:00 PM Dictated By: ROMY DIXON MD, MD 1 200 Transcribed By: SEPIDEH on 04/22/18 1200 COPY TO: CHRIS BLANCA
--- OUTSIDE RECORDS SUMMARY | 2020-02-13 22:37 | XMS REPORT | Clinical Summary ---
Author Author RUTHANN [facility] Address Unknown Phone Unavailable Care Team Providers Care Leather Carver Name Role Phone Farzad Styles MD PCP [phone] Allergies Comments Active Allergy Reactions Severity [...] 07/19/2019 Emergency Emergency Medicine 07/19/2019 Travel after 02/12/2019 Social History Date Tobacco Use Types Packs/Day [...] Taken Vital Sign Reading 07/19/2019 7:30 PM [employer] Blood Pressure 130/77 07/19/2019 7:30 PM [employer] Pulse 59 07/19/2019 5:58 PM [employer] Temperature 36.9 C (98.4 F) 07/19/2019 7:30 PM [employer] SALES [employer] Respiratory Rate 18 07/19/2019 7:30 PM [employer] SALES [employer]ATE Oxygen Saturation 100% - Inhaled Oxygen - Concentration 07/19/2019 1:16 PM LOCAL SALES ASSOCIATE Weight 71.2 kg (157 lb) 07/19/2019 1:16 PM LOC[employer] SALES ASSOCIATE Height 190.9 cm (6' 3.16") 07/19/2019 1:16 PM [employer] SALES [employer]ATE Body Mass Index 19.54 Plan of Treatment Not on file Procedures Comments Procedure Name Priority Date/Time Associated Diag nosis CT ABDOMEN/PELVIS WITHOUT STAT 07/19/2019 IV CONTRAST 5:43 PM [employer] SALES [employer] CBC W/PLT COUNT & AUTO STAT 07/19/2019 DIFFERENTIAL 4:15 PM [employer] SALES [employer]OCI[employer] HEPATIC FUNCTION PANEL STAT 07/19/2019 4:15 PM LOCAL SALES ASSOCIATE BASIC METABOLIC PANEL (7) STAT 07/19/2019 4:15 PM LOCAL SALES ASSOCIATE PT/APTT STAT 07/19/2019 4:15 PM LOCAL SALES ASSOCIATE LIPASE STAT 07/19/2019 4:15 PM LOCAL SALES ASSOCIATE CBC W/PLT COUNT & AUTO STAT 07/19/2019 DIFFERENTIAL 4:15 PM LOCAL SALES ASSOCIATE after 02/12/2019 Results * CT abdomen/pelvis without iv contrast (07/19/2019 5:43 PM LOCAL SALES ASSOCIATE) Specimen Narrative Performed At FINAL REPORT [facility] CT scan of the abdomen and pelvis. [...] Report Verified Date/Time: 0 18:14:16 Reading Location: [facility] C013Y CT Body Reading Room Procedure Note Interface, External Ris In - 07/19/2019 6:16 PM LOCAL SALES ASSOCIATE FINAL REPORT CT scan of the abdomen [...] Report Verified Date/Time: 07/19/2019 18:14:16 Reading Location: [facility] B1 C013Y CT Body Reading Room Performing Organization Address [facility] Ph one Number GE RIS * PT/aPTT (07/19/2019 4:15 PM LOCAL SALES ASSOCIATE) Protime 12.8 11.9 - 14.[address] [facility] INR 1.0 <=5.9 [facility] PTT 29.9 22.5 - 36.[address] [facility] Specimen Blood Narrative Performed At Effective 12/08/2018: PT Reference Range Change [facility] New: 11.9-14.2Previous: 11.7-14.7 [facility] MEDICAL CE NTER RECOMMENDED COUMADIN/WARFARIN INR THERA PY RANGES STANDARD DOSE: 2.0-3.0Includes: PRO PHYLAXIS for venous thrombosis, systemic embolization; TREATMENT for venous thro mbosis and/or pulmonary embolus. HIGH RISK: Target INR is 2.5-3.5 for pa tients wiht mechanical heart valves. Performing Organization Address [facility] Ph one Number [address] [facility] [facility] * CBC with platelet count + automated diff (07/19/2019 4:15 PM LOCAL SALES ASSOCIATE) WBC 6.0 3.5 - 10.5 K/L [facility] RBC 5.31 4.63 - 6.08 M/L [facility] Hemoglobin 15.7 13.7 - 17.5 GM/DL [facility] Hematocrit 47.6 40.1 - 51.0 % [facility] MCV 89.6 79.0 - 92.2 fL [facility] MCH 29.6 25.7 - 32.2 pg [facility] MCHC 33.0 32.3 - 36.5 GM/DL [facility] RDW 14.1 11.6 - 14.4 % [facility] Platelets 303 150 - 450 K/CU MM [facility] MPV 8.9 (L) 9.4 - 12.4 fL [facility] nRBC 0 0 - 0 /100 WBC [facility] % Neutros 56 % [facility] % Lymphs 29 % [facility] % Monos 9 % [facility] % Eos 5 % [facility] % Baso 1 % [facility] # Neutros 3.38 1.78 - 5.38 K/L [facility] # Lymphs 1.75 1.32 - 3.57 K/L [facility] # Monos 0.54 0.30 - 0.82 K/L [facility] # Eos 0.27 0.04 - 0.54 K/L [facility] # Baso 0.05 0.01 - 0.08 K/L [facility] Immature 0 0 - 1 % [facility] Granulocytes-Relative [facility] Specimen Blood Performing Organization Address City/State/Zipcode Ph one Number [address] [facility] [facility] * Lipase (07/19/2019 4:15 PM LOCAL SALES ASSOCIATE) Lipase 175 (H) 8 - 78 U/L [facility] Specimen Blood Performing Organization Address City/[facility] Ph one Number [place] [address] [facility] * Hepatic function panel (07/19/2019 4:15 PM LOCAL SALES ASSOCIATE) Protein, Total 7.9Comment: Specimen slightly 6.0 - 8.3 gm/dL [facility] Albumin 4.6Comment: Specimen slightly 3.5 - 5.0 g/dL [facility] Total Bilirubin 0.2Comment: Specimen slightly 0.2 - 1.2 mg/dL [facility] Bilirubin, Direct 0.1Comment: Specimen slightly 0.1 - 0.5 mg/ dL [facility] Alkaline Phosphatase 70 40 - 150 U/L [facility] AST 16Comment: Specimen slightly 5 - 34 U/L C [facility] ALT 12Comment: Specimen slightly 6 - 55 U/L C [facility] Specimen Blood Performing Organization Address City/[facility] Ph one Number [place] [phone] [facility] * Basic Metabolic Panel (07/19/2019 4:15 PM LOCAL SALES ASSOCIATE) Sodium 138 136 - 145 meq/L [facility] Potassium 4.4Comment: Specimen slightly 3.5 - 5.1 meq/L [facility] Chloride 103 98 - 107 meq/L [facility] CO2 25 22 - 29 meq/L [facility] BUN 7 7 - 21 mg/dL [facility] Creatinine 1.01Comment: Specimen slightly 0.57 - 1.25 mg/ dL [facility] Glucose 94 70 - 105 mg/dL [facility] Calcium 9.6 8.4 - 10.2 mg/dL [facility] EGFR 112Comment: ESTIMATED GFR IS mL/min/1.73 sq m [facility] NOT ACCURATE CREATININE [facility] CLEARANCE IN PREDICTING GLOMERULAR FILTRATION RATE. ESTIMATED GFR IS NOT APPLICABLE FOR DIALYSIS PATIENTS. Specimen Blood Performing Organization Address City/State/Zipcode Ph one Number [address] [facility] after 02/12/2019 Insurance Payer Benefit Subscriber ID Type Phone Address Plan / Group CIGNA - MGD CARE CIGNA xxxxxxxxx HMO/POS [facility] Guarantor Name Account Relation to Date of Phone Victor Manuel friend Address Type Patient Reid Tolliver Joey Personal/F Self 1995 [id number] [place] (Home) [place] [address]
== END 2020-02-13 22:37 | disposition home or self-care (01) ==
LOC: ER 22:21
DX: S01.412A Laceration without foreign body of left cheek and temporomandibular area, initial encounter (principal); Y00.XXXA Assault by blunt object, initial encounter; F17.210 Nicotine dependence, cigarettes, uncomplicated
CPT/HCPCS: 12013; 90471; 90714; 99282; J2001

== ENCOUNTER 2020-12-31 11:17 | Emergency (ER) | payer OTHER | END 2020-12-31 11:34 | disposition home or self-care (01) | LOC: FSED 11:18 | DX: M25.562 Pain in left knee (principal); L02.416 Cutaneous abscess of left lower limb; F41.9 Anxiety disorder, unspecified; F17.210 Nicotine dependence, cigarettes, uncomplicated | CPT/HCPCS: 99283 ==